=== PATIENT | female | born 1960 | race Caucasian/White ===

== ENCOUNTER → 2022-01-21 07:49 | Outpatient (CLI) | payer BC, SELFPAY ==
[2022-01-21 10:01] LABS: Alanine Aminotransferase 17 IU/L (<35); Albumin 4.5 g/dL (3.5-5.0); Albumin Globulin Ratio 1.6 (1.0-2.8); Alkaline Phosphatase 53 U/L (38-126); Aspartate Aminotransferase 27 IU/L (14-36); BUN Creatinine Ratio 17.6 (6-22); Blood Urea Nitrogen 12 mg/dL (7-17); Calcium 9.5 mg/dL (8.4-10.2); Carbon Dioxide 27 mmol/L (22-32); Chloride 111 mmol/L (98-107); Cholesterol 262 mg/dL (140-199); Estimated Glomerular Filt Rate > 60 mL/min (>60); Globulin 2.9 g/dL (1.7-4.1); Glucose 103 mg/dL (80-110); HDL Cholesterol 59 mg/dL (40-60); HEMOLYSIS < 15 (0-50); LDL Cholesterol Calculated 186 mg/dL (<100); Potassium 5.1 mmol/L (3.4-5.1); Sodium 142 mmol/L (137-145); Total Protein 7.4 g/dL (6.3-8.2); Triglycerides 85 mg/dL (35-150)
== END ==
PROVIDERS: PCP Internal Medicine; Referring Provider Internal Medicine; Visit Provider Internal Medicine
DX: Z13.1 Encounter for screening for diabetes mellitus (principal); Z13.220 Encounter for screening for lipoid disorders; Z13.6 Encounter for screening for cardiovascular disorders
CPT/HCPCS: 36415; 80053; 80061

== ENCOUNTER → 2022-01-26 08:29 | Outpatient (CLI) | payer BC, SELFPAY ==
--- NOTE | 2022-01-26 | DI.MG.S_ITS ---
BILATERAL DIGITAL SCREENING MAMMOGRAM 3D/2D WITH CAD WITH AUGMENTATION: 01/26/2022 CLINICAL: Routine screening. Baseline exam. No prior exams were available for comparison. There are scattered fibroglandular elements in both breasts. Current study was also evaluated with a Computer Aided Detection (CAD) system. Bilateral breast implants are intact. No significant masses, calcifications, or other findings are seen in either breast. IMPRESSION: NEGATIVE There is no mammographic evidence of malignancy. A 1 year screening mammogram is recommended. Based on the Tyrer Cuzick model (a risk assessment model) the patient's lifetime risk is 9.0% and her 10 year risk is 3.8%. According to the ACR, ACS, and NCCN guidelines, an annual breast MRI exam along with mammogram is recommended if the patient's lifetime risk is 20% or greater. This exam was interpreted at Station ID: [id number]. NOTE: For mammograms, a report in lay terms will be sent to the patient. Approximately 15% of breast malignancies will not be visualized mammographically. In the management of a palpable breast mass, a negative mammogram must not discourage biopsy of a clinically suspicious lesion. Electronically Signed By: Armando shaikh/salvatore:01/26/2022 11:00:04 letter sent: Normal Exam ACR BI-RADS Category 1: Negative 3341F
== END ==
PROVIDERS: PCP Internal Medicine; Referring Provider Internal Medicine; Visit Provider Internal Medicine
DX: Z12.31 Encounter for screening mammogram for malignant neoplasm of breast (principal); Z98.82 Breast implant status
CPT/HCPCS: 77063; 77067

== ENCOUNTER 2022-03-09 11:32 | Day surgery (SDC) | payer BC, SELFPAY ==
[2022-03-09 11:56] VITALS: BP 130/81; PULSE 74; RESP 18; TEMP 36.7; O2SAT 99; BMI 29.2
[2022-03-09] MEDS: LACTATED RINGERS 1,000 ML 200 ML IV (12:11)
[2022-03-09 12:26] LABS: COVID19 -Nasal RAPID Negative (Negative)
[2022-03-09 12:46] VITALS: BMI 29.2
--- NOTE | 2022-03-09 13:09 | PM.HP.1 ---
History of Present Illness History of Present Illness Date Patient Seen: 03/09/22 Time Patient Seen: 13:12 Chief complaint: COC Narrative: The patient presents for colorectal screening. Previously normal colonoscopy approximately 10 years ago.. No personal or family history of colon cancer. On further history denies any recent gastrointestinal symptoms. No nausea, vomiting, abdominal pain, loss of appetite, unexplained weight loss, change in bowel habits, diarrhea, constipation, melena, hematochezia, or bright red blood per rectum. Patient History Medical History Herpes (~1972) Melanoma (~1998) Surgical History Anesthesia History of section (~1990) Melanoma (~1998) Family & Social History Family History Father Cancer Brother Kidney transplanted Grandmother History of heart disease Social History: household members spouse Tobacco & Substance use: Tobacco type cannabis/marijuana Smoking Status Current some day smoker alcohol intake current alcohol intake frequency 0-2 drinks per day Substance Use Type marijuana Meds Home Medications and Allergies Home Medications Medication Instructions Recorded Confirmed Type peg 3350-electrolytes 236 240 ml PO Q10M #4,000 mL 02/23/22 Rx gram-22.74 gram-6.74 gram-5.86 gram solution (Golytely) Allergies Allergy/AdvReac Type Severity Reaction Status Date / Time No Known Drug Allergies Allergy Verified 03/09/22 11:56 Exam Vital Signs (past 8 hours): - 03/09/22 11:56 Temperature 98.1 F Pulse Rate 74 Respiratory Rate 18 Blood Pressure 130/81 Pulse Oximetry 99 Oxygen Delivery Method Room Air Oxygen Delivery Method Room Air Narrative Exam Narrative: General adult woman alert oriented no acute distress Abdomen soft nontender nondistended. Objective Labs Labs: Laboratory Results - last 24 hr 03/09/22 11:53 SARS-CoV-2 (PCR) Negative Assessment & Plan Assessment and plan (1) Screening for colon cancer: Status: Acute Assessment & Plan narrative: The patient requires colorectal screening and colonoscopy is recommended. Technical details were discussed. Risks, benefits, alternatives explained. Risks including but not limited to myocardial infarction, aspiration, bleeding, pain, missed lesion, incomplete examination, need for further radiographic studies, colonic perforation, and need for major abdominal surgery were discussed. All questions were answered to their satisfaction, and they are in agreement with this plan. Time Spent With Patient Critical Care time: I spent a total of [] minutes of critical care time on this patient's care today; this time is exclusive of procedural time.
[2022-03-09] MEDS: MIDAZOLAM 5 MG/5 ML VIAL IV (13:34)
[2022-03-09] MEDS: fentaNYL 100 MCG/2 ML INJ IV (13:36)
--- NOTE | 2022-03-09 13:49 | P.OP.COLON_ITS ---
Operative Date/Time/Diagnoses Date of procedure: 03/09/22 Time of procedure: 13:50 Pre-op diagnosis: Screening Post-op diagnosis: same Procedure & Clinicians Study performed: colonoscopy Same procedure as scheduled: Yes Indications: Screening Surgeon: Keyon Iniguez Procedure Notes Procedure in detail: Medications: Conscious sedation using 8mg IV midazolam and 200mcg IV of fentanyl The history and physical was performed/updated and the patient is ASA class is 1. The procedure was discussed in detail with the patient. Potential risks complications including infection, bleeding, missed diagnosis, perforation, need for surgery, and were explained. Their questions were answered and informed consent was obtained. Patient was brought to the procedure room and placed standard monitoring equipment. The patient's vital signs were monitored continuously throughout the entire procedure. Prior to starting time-out was performed. The patient was placed in the left lateral recumbent position. Procedural sedation was adminis tered. Examination began with a thorough inspection of the perianal area there was no evidence of fissures, fistulae, external hemorrhoids or cutaneous malignancy. The colonoscopy scope was then placed into the anal canal and was advanced to the cecum, which was identified by the ileocecal valve, the appendiceal orifice and the confluence of the taenia. The scope was then slowly withdrawn examining colon thoroughly in all directions, irrigating it of any residual stool. FINDINGS 1. No masses or polyps 2. Tortuous colon 3. Sigmoid mild diverticulosis The patient tolerated the procedure well. They will be discharged once criteria are met. The prep was of good/excellent quality. The withdrawl time was 9 minutes. The sedation time was 25 minutes. Specimen(s): none sent Complications: none Impression: Normal colonoscopy Post-procedure Recommendations: Colonoscopy in 10 years Disposition: same day surgery
[2022-03-09 13:54] VITALS: BP 133/86; PULSE 55; RESP 17; TEMP 36.6; O2SAT 100
[2022-03-09 13:59] VITALS: BP 125/80; PULSE 56; RESP 14; O2SAT 99
[2022-03-09 14:04] VITALS: BP 114/82; PULSE 50; RESP 14; TEMP 36.6; O2SAT 100
[2022-03-09 14:06] VITALS: BP 123/82; PULSE 50; RESP 16; O2SAT 99
--- NOTE | 2022-03-09 14:28 | SUR.PHASEII ---
Pt to go home via [facility] aware, still sleepy. No complaints
[2022-03-09 15:19] VITALS: BP 110/73; PULSE 61; RESP 16; TEMP 36.6; O2SAT 98
--- NOTE | 2022-03-09 15:24 | SUR.PHASEII ---
Pt now awake, d/c instructions discussed, pt ready to go, taxi called, pt left unit in stable condition.
== END 2022-03-09 15:25 | disposition home or self-care (01) ==
PROVIDERS: PCP Internal Medicine; Referring Provider Surgery; Visit Provider Surgery
PROC: 0DJD8ZZ Inspection of Lower Intestinal Tract, Via Natural or Artificial Opening Endoscopic (ICD-10-PCS; CPT 45378; principal; 2022-03-09 13:15)
DX: Z12.11 Encounter for screening for malignant neoplasm of colon (principal); Z20.822 Contact with and (suspected) exposure to COVID-19; K57.30 Diverticulosis of large intestine without perforation or abscess without bleeding
CPT/HCPCS: 45378; 87635; 99152; 99153; C9803; J2250; J3010

== ENCOUNTER → 2025-07-02 08:12 | Outpatient (CLI) | payer MEDICARE, SELFPAY ==
[2025-07-02 08:39] LABS: Hemoglobin A1C% w Est Avg Glu 5.2 % (4.0-6.0)
[2025-07-02 08:46] LABS: Cholesterol 227 mg/dL (140-199); HDL Cholesterol 75 mg/dL (40-60); Triglycerides 81 mg/dL (35-150)
== END ==
PROVIDERS: PCP Family Medicine; Referring Provider Family Medicine; Visit Provider Family Medicine
DX: Z13.1 Encounter for screening for diabetes mellitus (principal); Z13.220 Encounter for screening for lipoid disorders
CPT/HCPCS: 36415; 80061; 83036